=== PATIENT | female | born 1980 | race Caucasian/White ===

== ENCOUNTER → 2018-09-24 09:47 | Day surgery (SDC) | payer OTHER ==
[~2018-09-24 09:47] MED LIST: Acetaminophen TAB* 325 MG PO PRN; Buffered Lidocaine 1% SYRIN* 1 ML/SYRINGE INTRADERM ONE; DiMENhydriNATE IV* 50 MG/ML VIAL IV PUSH PRN; DiMENhydriNATE IV* 50 MG/ML VIAL ONE; Famotidine IV* 10 MG/ML 2 ML (20 mg) ONE; Lactated Ringers 1000 ML Bag* 1,000 ML IV SCH; Levalbuterol 0.63MG/3ML NEB* UNIT OF USE INH PRN; Lidocaine 2% PF * 5 ML VIAL ONE; Midazolam* 1 MG/ML 2 ML VIAL (2 MG) ONE; Naloxone* 0.4 MG/ML 1 ML VIAL IV PRN; Ondansetron INJ* 2 MG/ML VIAL ONE; PROCHLORPERAZINE INJ 5 MG/ML 2 ML VIAL IV PRN; Propofol* 10 MG/ML 20 ML BTL ONE; diPHENhydraMINE IV* 50 MG/ML 1 ml VIAL (BENADRYL) IV PRN; fentaNYL* 50 MCG/ML 2 ML VIAL (100 MCG VIAL) ONE
[2018-09-24 14:58] VITALS: BP 146/91
--- NOTE | 2018-09-25 01:22 | PRO ---
CC: Alok Ochoa MD* COLONOSCOPY AND EGD REPORT: DATE OF SERVICE: 09/24/18 - [facility] PHYSICIAN: Alok Ochoa MD INDICATIONS FOR PROCEDURE: GERD, constipation, and rectal bleeding. PROCEDURE PERFORMED: Complete esophagogastroduodenoscopy with biopsies, complete colonoscopy to the terminal ileum. MEDICATIONS GIVEN: Please see anesthesia record. DESCRIPTION OF PROCEDURE: After the EGD and colonoscopy procedure including the risks, benefits, and alternatives with the risks not limited to perforation , surgery, missed lesions, and/or were explained to the patient, written and informed consent was obtained, IV medication was given, and a bite block was placed between the teeth. The adult Olympus gastroscope was then inserted into the patient's oropharynx very carefully into the tubular esophagus. At the distal tubular esophagus, the GE junction was at 39 cm. There was very mild irregularity to the junction. I did biopsy a 1 cm tongue that may be Ovalle's. I did take samples of that to rule it out. The scope was then advanced through the lower esophageal sphincter into the stomach. There was mild gastritis. This was biopsied for TONIA testing. In addition, she had a few small gastric polyps, these were sampled and biopsied. On retroflexion, the views were grossly normal. The scope was advanced through the widely patent pylorus into the duodenal bulb, C- loop, and distal duodenum. These were normal in appearance. Given her symptomatology, I did biopsies for celiac disease. The scope was then removed from the patient. She tolerated the procedure well. She was given additional IV sedation medication and a rectal exam was then performed. The rectal exam was unremarkable. The adult Olympus colonoscope was then advanced very carefully through the entirety of the colon and into the cecal base. The preparation was quite poor, but I was able to wash and get decent views of the mucosa. It is insufficient for a polypectomy detection. The scope was then advanced into the terminal ileum x10 to 15 cm and this was normal in appearance. The scope was then returned to the cecum, and then over the next several minutes, the scope was carefully withdrawn. The mucosa was grossly normal; however, the preparation was poor. However, no gross Crohn's or ulcerative colitis or vascular or mucosal abnormalities were visualized. On return to the rectum, the direct views were normal on retroflexion. She had grade 1 internal hemorrhoids. The scope was then removed from the patient. She tolerated the procedure well. She returned to the recovery room in stable condition. IMPRESSION: 1. Complete esophagogastroduodenoscopy with biopsies. 2. A 1 cm variable tongue, possible Ovalle's at GE junction biopsied. 3. Mild gastritis biopsied for TONIA testing. 4. Gastric polyps biopsied for sampling. 5. Normal duodenum biopsied. 6. Colonoscopy to the terminal ileum, grossly normal mucosa that was visualized but poor prep. 7. Grade 1 internal hemorrhoids. RECOMMENDATIONS: At this time, I suspect her rectal bleeding was hemorrhoidal in nature. No do not see any gross evidence of Crohn's or ulcerative colitis. The preparation was poor and it is insufficient for detection of polyps and other smaller lesions. I think the overall picture here is consistent with IBS- C in terms of irritable bowel with constipation predominance. She is on Amitiza 24 mcg b.i.d. and still not moving the bowels well even after all the prep and everything else. We will plan on changing her to Linzess 290 mcg daily. In addition, she will need 5 to 10 mg of Dulcolax nightly and try to get her bowels moving better. Once we are able to get a more normal bowel pattern, we will plan on repeating the colonoscopy in 6 months to 1 year to just fully evaluate the colon for any smaller lesions, but again any large lesions would have been identified today. In terms of her upper GI symptoms, would recommend continuing on PPI at this time especially given prednisone usage , and we will follow up on the results of her biopsies. If she does indeed have Ovalle esophagus, would then recommend repeat endoscopy in 3 years. [id number]/[facility] #: [id number] VERNA
== END | disposition home or self-care (01) ==
LOC: OR 09:47
PROVIDERS: ATTEND Internal Medicine Gastroenterology
DX: K21.9 Gastro-esophageal reflux disease without esophagitis (principal); K59.09 Other constipation; K62.5 Hemorrhage of anus and rectum; D13.1 Benign neoplasm of stomach; K29.70 Gastritis, unspecified, without bleeding; K64.0 First degree hemorrhoids
CPT/HCPCS: 81025; 87077; 88305; 88342; J1240; J2250; J2405; J2704; J3010